=== PATIENT | male | born 1950 | race Asian ===

== ENCOUNTER 2022-03-03 14:58 | Inpatient (IN) | payer MEDICARE ==
[~2022-03-03] VITALS: Ht 182.9 cm; Wt 88.5 kg
[2022-03-03] MEDS ORDERED: DEXTROSE 50% WATER 50ML SYRINGE IV PRN ×2 (17:45→18:00)
[2022-03-03] MEDS ORDERED: BISACODYL 10MG SUPP PR PRN (17:45)
[2022-03-03 18:12] VITALS: BP 151/72
[2022-03-03 19:00] VITALS: BP 129/66
[2022-03-03] MEDS: BLOOD SUGAR DIAGNOSTIC STRIP TEST SCH (21:00)
[2022-03-03] MEDS: CLONIDINE 0.1MG TABLET PO PRN (21:34)
[2022-03-03] MEDS: AMLODIPINE 5MG TABLET PO SCH (21:35)
[2022-03-03] MEDS: INSULIN LISPRO 100 UNITS/ML SUBCUT SCH (21:36)
[2022-03-03] MEDS: VANCOMYCIN 1GM PMX (XELLIA) 200 ML IV SCH (23:58)
[2022-03-04 00:09] VITALS: BP 160/77
[2022-03-04 04:39] VITALS: BP 162/82
[2022-03-04] MEDS: BLOOD SUGAR DIAGNOSTIC STRIP TEST SCH ×4 (05:49→21:11)
[2022-03-04] MEDS: ACETAMINOPHEN 325MG TABLET PO PRN (05:49)
[2022-03-04] MEDS: INSULIN LISPRO 100 UNITS/ML SUBCUT SCH ×4 (05:52→21:57)
[2022-03-04 06:38] LABS: BASOPHILS % 1.2 % (0.0-2.0); EOSINOPHILS % 7.6 % (0.0-5.0); HEMOGLOBIN. 8.6 g/dL (14.0-18.0); LYMPHOCYTES % 22.6 % (20.0-50.0); MEAN CORPUSCULAR HEMOGLOBIN 29.8 pg (28.0-32.0); MEAN CORPUSCULAR VOLUME 86.6 fL (80.0-94.0); MEAN PLATELET VOLUME 5.9 fl (7.4-10.4); MONOCYTES % 7.7 % (2.0-8.0); NEUTROPHILS % 60.9 % (40.0-76.0); PLATELET 321 x1000/uL (130-400); RED BLOOD CELL COUNT 2.88 mill/uL (4.7-6.1); RED CELL DISTRIBUTION WIDTH 16.3 % (11.6-14.6)
[2022-03-04 07:47] LABS: CHLORIDE 104 mEq/L (98-107); TOTAL IRON BINDING CAPACITY 183 ug/dL (250-450)
[2022-03-04 07:55] LABS: FERRITIN 304 ng/mL (22-322); PROSTRATE SPECIFIC AG TOTAL 0.09 ng/mL (0.0-4.0)
[2022-03-04 08:00] VITALS: BP 151/71
[2022-03-04 08:27] LABS: VITAMIN B12 SERUM 795 pg/mL (211-911)
[2022-03-04] MEDS ORDERED: GABAPENTIN 100MG CAPSULE PO SCH (09:00)
[2022-03-04] MEDS: AMLODIPINE 5MG TABLET PO SCH ×2 (09:02→21:52)
[2022-03-04] MEDS: DOCUSATE SODIUM 100MG CAPSULE PO SCH ×2 (09:02→17:24)
[2022-03-04] MEDS: ENOXAPARIN 40MG/0.4ML SYR SUBCUT SCH (09:03)
[2022-03-04] MEDS: POLYETHYLENE GLYCOL 3350 (17GM) 1 DOSE PACK PO SCH (09:03)
[2022-03-04] MEDS ORDERED: POTASSIUM CHLORIDE 20MEQ TABLET SR PO NR (09:30)
[2022-03-04] MEDS: ASCORBIC ACID 500 MG TABLET PO SCH (10:58)
[2022-03-04] MEDS: VANCOMYCIN 1GM PMX (XELLIA) 200 ML IV SCH (12:43)
[2022-03-04] MEDS: FERROUS SULFATE 325MG TABLET PO SCH ×2 (14:01→17:24)
[2022-03-04] MEDS: GABAPENTIN 300MG CAPSULE PO SCH ×2 (14:02→21:51)
[2022-03-04] MEDS: NYSTATIN POWDER 15GM TOP SCH (18:55)
[2022-03-04 20:00] VITALS: BP 162/76
[2022-03-04 20:30] VITALS: BP 155/78
[2022-03-04] MEDS ORDERED: PREGABALIN 25MG CAPSULE PO SCH (21:00)
[2022-03-04] MEDS: CLONIDINE 0.1MG TABLET PO PRN (22:58)
[2022-03-05] VITALS: BP 134/70
[2022-03-05] MEDS: VANCOMYCIN 1GM PMX (XELLIA) 200 ML IV SCH (00:41)
[2022-03-05] MEDS: INSULIN LISPRO 100 UNITS/ML SUBCUT SCH ×4 (06:39→21:39)
[2022-03-05] MEDS: BLOOD SUGAR DIAGNOSTIC STRIP TEST SCH ×4 (06:39→21:31)
[2022-03-05] MEDS: GABAPENTIN 300MG CAPSULE PO SCH ×3 (06:41→21:35)
[2022-03-05 07:35] LABS: CHLORIDE 103 mEq/L (98-107)
[2022-03-05 08:00] VITALS: BP 162/89
[2022-03-05] MEDS: DOCUSATE SODIUM 100MG CAPSULE PO SCH ×2 (09:11→17:41)
[2022-03-05] MEDS: FERROUS SULFATE 325MG TABLET PO SCH ×3 (09:12→17:40)
[2022-03-05] MEDS: ASCORBIC ACID 500 MG TABLET PO SCH (09:12)
[2022-03-05] MEDS: ENOXAPARIN 40MG/0.4ML SYR SUBCUT SCH (09:12)
[2022-03-05] MEDS: NYSTATIN POWDER 15GM TOP SCH ×3 (09:13→17:00)
[2022-03-05] MEDS: POLYETHYLENE GLYCOL 3350 (17GM) 1 DOSE PACK PO SCH (09:13)
[2022-03-05] MEDS: AMLODIPINE 5MG TABLET PO SCH ×2 (09:18→21:35)
[2022-03-05] MEDS: LOSARTAN POTASSIUM 100 MG TABLET PO SCH (12:48)
[2022-03-05] MEDS: CEFEPIME 2,000 MG in DEXT 5% WATER 100 ML IV SCH (15:46)
[2022-03-05 20:00] VITALS: BP 158/81
[2022-03-06] MEDS: CEFEPIME 2,000 MG in DEXT 5% WATER 100 ML IV SCH ×2 (03:13→16:45)
[2022-03-06] MEDS: BLOOD SUGAR DIAGNOSTIC STRIP TEST SCH ×4 (06:47→21:00)
[2022-03-06] MEDS: INSULIN LISPRO 100 UNITS/ML SUBCUT SCH ×4 (06:48→22:42)
[2022-03-06] MEDS: GABAPENTIN 300MG CAPSULE PO SCH ×3 (06:48→21:21)
[2022-03-06 08:00] VITALS: BP 125/63
[2022-03-06] MEDS: LOSARTAN POTASSIUM 100 MG TABLET PO SCH (09:49)
[2022-03-06] MEDS: ASCORBIC ACID 500 MG TABLET PO SCH (09:50)
[2022-03-06] MEDS: FERROUS SULFATE 325MG TABLET PO SCH ×3 (09:50→16:45)
[2022-03-06] MEDS: AMLODIPINE 5MG TABLET PO SCH ×2 (09:50→21:22)
[2022-03-06] MEDS: POLYETHYLENE GLYCOL 3350 (17GM) 1 DOSE PACK PO SCH (09:51)
[2022-03-06] MEDS: ENOXAPARIN 40MG/0.4ML SYR SUBCUT SCH (09:51)
[2022-03-06] MEDS: DOCUSATE SODIUM 100MG CAPSULE PO SCH ×2 (10:01→17:00)
[2022-03-06] MEDS: NYSTATIN POWDER 15GM TOP SCH ×3 (10:01→17:18)
[2022-03-06] MEDS: VANCOMYCIN 1GM PMX (XELLIA) 200 ML IV SCH ×2 (10:35→12:00)
[2022-03-06] MEDS: ONDANSETRON 4MG ODT PO PRN (11:02)
[2022-03-06 20:00] VITALS: BP 157/86
[2022-03-06 21:15] LABS: CHLORIDE 104 mEq/L (98-107)
[2022-03-07] MEDS: CEFEPIME 2,000 MG in DEXT 5% WATER 100 ML IV SCH ×2 (03:52→14:38)
[2022-03-07] MEDS: VANCOMYCIN 1GM PMX (XELLIA) 200 ML IV SCH ×2 (06:23→23:11)
[2022-03-07] MEDS: GABAPENTIN 300MG CAPSULE PO SCH ×3 (06:24→21:36)
[2022-03-07] MEDS: BLOOD SUGAR DIAGNOSTIC STRIP TEST SCH ×4 (06:24→21:00)
[2022-03-07] MEDS: INSULIN LISPRO 100 UNITS/ML SUBCUT SCH ×4 (07:39→21:38)
[2022-03-07 08:00] VITALS: BP 153/80
[2022-03-07] MEDS: POLYETHYLENE GLYCOL 3350 (17GM) 1 DOSE PACK PO SCH (08:09)
[2022-03-07] MEDS: LOSARTAN POTASSIUM 100 MG TABLET PO SCH (08:10)
[2022-03-07] MEDS: ASCORBIC ACID 500 MG TABLET PO SCH (08:10)
[2022-03-07] MEDS: FERROUS SULFATE 325MG TABLET PO SCH ×2 (08:12→12:24)
[2022-03-07] MEDS: AMLODIPINE 5MG TABLET PO SCH ×2 (08:12→21:36)
[2022-03-07] MEDS: DOCUSATE SODIUM 100MG CAPSULE PO SCH ×2 (08:12→17:42)
[2022-03-07] MEDS: ENOXAPARIN 40MG/0.4ML SYR SUBCUT SCH (08:13)
[2022-03-07] MEDS: NYSTATIN POWDER 15GM TOP SCH ×3 (08:15→17:42)
[2022-03-07] MEDS: MECLIZINE 25MG TABLET PO PRN (12:25)
[2022-03-07 20:00] VITALS: BP 155/83
[2022-03-08] MEDS: CEFEPIME 2,000 MG in DEXT 5% WATER 100 ML IV SCH ×2 (02:11→14:02)
[2022-03-08] MEDS: GABAPENTIN 300MG CAPSULE PO SCH ×2 (05:44→13:57)
[2022-03-08] MEDS: BLOOD SUGAR DIAGNOSTIC STRIP TEST SCH ×4 (05:44→21:00)
[2022-03-08 07:54] LABS: BASOPHILS % 1.8 % (0.0-2.0); EOSINOPHILS % 9.2 % (0.0-5.0); HEMATOCRIT. 28.1 % (42.0-52.0); HEMOGLOBIN. 9.5 g/dL (14.0-18.0); LYMPHOCYTES % 23.5 % (20.0-50.0); MEAN CORPUSCULAR HEMOGLOBIN 29.6 pg (28.0-32.0); MEAN CORPUSCULAR VOLUME 87.7 fL (80.0-94.0); MEAN PLATELET VOLUME 6.1 fl (7.4-10.4); MONOCYTES % 8.9 % (2.0-8.0); NEUTROPHILS % 56.6 % (40.0-76.0); PLATELET 262 x1000/uL (130-400); RED CELL DISTRIBUTION WIDTH 17.3 % (11.6-14.6)
[2022-03-08] MEDS: INSULIN LISPRO 100 UNITS/ML SUBCUT SCH ×4 (07:57→22:19)
[2022-03-08 08:00] VITALS: BP 151/76
[2022-03-08] MEDS: ASCORBIC ACID 500 MG TABLET PO SCH (09:35)
[2022-03-08] MEDS: AMLODIPINE 5MG TABLET PO SCH ×2 (09:36→22:20)
[2022-03-08] MEDS: ENOXAPARIN 40MG/0.4ML SYR SUBCUT SCH (09:37)
[2022-03-08 09:38] LABS: CHLORIDE 102 mEq/L (98-107)
[2022-03-08] MEDS: NYSTATIN POWDER 15GM TOP SCH ×3 (09:38→17:46)
[2022-03-08] MEDS: POLYETHYLENE GLYCOL 3350 (17GM) 1 DOSE PACK PO SCH (09:38)
[2022-03-08] MEDS: MECLIZINE 25MG TABLET PO PRN (09:38)
[2022-03-08] MEDS: FERROUS SULFATE 325MG TABLET PO SCH (09:46)
[2022-03-08] MEDS: DOCUSATE SODIUM 100MG CAPSULE PO SCH ×2 (12:16→17:45)
[2022-03-08] MEDS ORDERED: POTASSIUM CHLORIDE 20MEQ TABLET SR PO NR (16:00)
[2022-03-08] MEDS: VANCOMYCIN 1GM PMX (XELLIA) 200 ML IV SCH (17:47)
[2022-03-08 20:00] VITALS: BP 140/77
[2022-03-08] MEDS: GABAPENTIN 100MG CAPSULE PO SCH (22:20)
[2022-03-09] MEDS: CEFEPIME 2,000 MG in DEXT 5% WATER 100 ML IV SCH ×2 (03:17→14:49)
[2022-03-09] MEDS: GABAPENTIN 100MG CAPSULE PO SCH ×3 (06:20→21:07)
[2022-03-09] MEDS: BLOOD SUGAR DIAGNOSTIC STRIP TEST SCH ×4 (06:33→21:00)
[2022-03-09 08:00] VITALS: BP 155/81
[2022-03-09] MEDS: NYSTATIN POWDER 15GM TOP SCH ×3 (09:00→17:42)
[2022-03-09] MEDS: POLYETHYLENE GLYCOL 3350 (17GM) 1 DOSE PACK PO SCH (09:00)
[2022-03-09] MEDS: INSULIN LISPRO 100 UNITS/ML SUBCUT SCH ×4 (09:00→21:06)
[2022-03-09] MEDS: ENOXAPARIN 40MG/0.4ML SYR SUBCUT SCH (09:37)
[2022-03-09] MEDS: FERROUS SULFATE 325MG TABLET PO SCH (09:38)
[2022-03-09] MEDS: AMLODIPINE 5MG TABLET PO SCH ×2 (09:38→21:08)
[2022-03-09] MEDS: DOCUSATE SODIUM 100MG CAPSULE PO SCH ×2 (09:38→17:37)
[2022-03-09] MEDS: ASCORBIC ACID 500 MG TABLET PO SCH (09:38)
[2022-03-09 17:06] LABS: 25-HYDROXY VITAMIN D3 11 ng/mL (.)
[2022-03-09 21:50] VITALS: BP 153/80
[2022-03-10] MEDS: CEFEPIME 2,000 MG in DEXT 5% WATER 100 ML IV SCH ×2 (04:03→14:20)
[2022-03-10] MEDS: MECLIZINE 25MG TABLET PO PRN (06:29)
[2022-03-10] MEDS: ONDANSETRON 4MG ODT PO PRN (06:30)
[2022-03-10] MEDS: BLOOD SUGAR DIAGNOSTIC STRIP TEST SCH ×4 (06:30→21:00)
[2022-03-10] MEDS: GABAPENTIN 100MG CAPSULE PO SCH ×3 (06:31→22:05)
[2022-03-10 08:00] VITALS: BP 123/62
[2022-03-10] MEDS: INSULIN LISPRO 100 UNITS/ML SUBCUT SCH ×4 (09:00→22:04)
[2022-03-10] MEDS: NYSTATIN POWDER 15GM TOP SCH ×3 (09:04→17:08)
[2022-03-10] MEDS: ENOXAPARIN 40MG/0.4ML SYR SUBCUT SCH (09:04)
[2022-03-10] MEDS: ASCORBIC ACID 500 MG TABLET PO SCH (09:05)
[2022-03-10] MEDS: DOCUSATE SODIUM 100MG CAPSULE PO SCH ×2 (09:05→18:17)
[2022-03-10] MEDS: FERROUS SULFATE 325MG TABLET PO SCH (09:05)
[2022-03-10] MEDS: AMLODIPINE 5MG TABLET PO SCH ×2 (09:05→21:00)
[2022-03-10] MEDS: POLYETHYLENE GLYCOL 3350 (17GM) 1 DOSE PACK PO SCH (09:10)
[2022-03-10] MEDS: ERGOCALCIFEROL 50000UNITS CAPSULE PO SCH (09:13)
[2022-03-10] MEDS ORDERED: VANCOMYCIN 1GM PMX (XELLIA) 200 ML IV SCH (17:00)
[2022-03-10 21:19] VITALS: BP 119/70
[2022-03-11] MEDS: BLOOD SUGAR DIAGNOSTIC STRIP TEST SCH ×3 (06:05→16:33)
[2022-03-11] MEDS: CEFEPIME 1,000 MG in DEXTROSE 5% WATER 50 ML IV SCH ×2 (06:14→18:06)
[2022-03-11] MEDS: GABAPENTIN 100MG CAPSULE PO SCH ×3 (06:14→21:39)
[2022-03-11 08:00] VITALS: BP 138/68
[2022-03-11 08:02] LABS: BASOPHILS % 1.4 % (0.0-2.0); EOSINOPHILS % 9.4 % (0.0-5.0); HEMATOCRIT. 31.3 % (42.0-52.0); HEMOGLOBIN. 10.3 g/dL (14.0-18.0); LYMPHOCYTES % 24.3 % (20.0-50.0); MEAN CORPUSCULAR VOLUME 88.2 fL (80.0-94.0); MEAN PLATELET VOLUME 6.6 fl (7.4-10.4); MONOCYTES % 9.6 % (2.0-8.0); NEUTROPHILS % 55.3 % (40.0-76.0); PLATELET 126 x1000/uL (130-400); RED BLOOD CELL COUNT 3.55 mill/uL (4.7-6.1); RED CELL DISTRIBUTION WIDTH 17.9 % (11.6-14.6)
[2022-03-11 08:16] LABS: CHLORIDE 100 mEq/L (98-107)
[2022-03-11 08:20] LABS: PHOSPHORUS 4.6 mg/dL (2.5-4.9)
[2022-03-11] MEDS: ENOXAPARIN 40MG/0.4ML SYR SUBCUT SCH (08:56)
[2022-03-11] MEDS: DOCUSATE SODIUM 100MG CAPSULE PO SCH ×2 (08:57→16:37)
[2022-03-11] MEDS: ASCORBIC ACID 500 MG TABLET PO SCH (08:57)
[2022-03-11] MEDS: FERROUS SULFATE 325MG TABLET PO SCH (08:57)
[2022-03-11] MEDS: AMLODIPINE 5MG TABLET PO SCH ×2 (08:58→21:39)
[2022-03-11] MEDS: POLYETHYLENE GLYCOL 3350 (17GM) 1 DOSE PACK PO SCH (08:59)
[2022-03-11] MEDS: NYSTATIN POWDER 15GM TOP SCH ×3 (09:00→16:39)
[2022-03-11] MEDS: VANCOMYCIN 1G PREMIX 200 ML IV SCH (10:05)
[2022-03-11] MEDS: INSULIN LISPRO 100 UNITS/ML SUBCUT SCH ×3 (10:15→17:07)
[2022-03-11 20:00] VITALS: BP 125/75
[2022-03-12] MEDS: INSULIN LISPRO 100 UNITS/ML SUBCUT SCH ×5 (00:17→21:00)
[2022-03-12] MEDS: BLOOD SUGAR DIAGNOSTIC STRIP TEST SCH ×5 (00:18→21:55)
[2022-03-12] MEDS: MECLIZINE 25MG TABLET PO PRN (03:55)
[2022-03-12] MEDS: ONDANSETRON 4MG ODT PO PRN (03:56)
[2022-03-12] MEDS ORDERED: VANCOMYCIN 1G PREMIX 200 ML IV SCH ×2 (05:00→12:00)
[2022-03-12] MEDS: VANCOMYCIN 1G PREMIX 200 ML IV SCH ×2 (05:00→05:08)
[2022-03-12] MEDS: CEFEPIME 1,000 MG in DEXTROSE 5% WATER 50 ML IV SCH ×2 (06:50→18:38)
[2022-03-12] MEDS: GABAPENTIN 100MG CAPSULE PO SCH ×3 (06:50→21:56)
[2022-03-12 07:04] LABS: BASOPHILS % 1.3 % (0.0-2.0); EOSINOPHILS % 8.4 % (0.0-5.0); HEMATOCRIT. 23.7 % (42.0-52.0); HEMOGLOBIN. 8.1 g/dL (14.0-18.0); LYMPHOCYTES % 22.5 % (20.0-50.0); MEAN CORPUSCULAR HEMOGLOBIN 29.9 pg (28.0-32.0); MEAN CORPUSCULAR VOLUME 87.7 fL (80.0-94.0); MEAN PLATELET VOLUME 6.4 fl (7.4-10.4); MONOCYTES % 9.5 % (2.0-8.0); NEUTROPHILS % 58.3 % (40.0-76.0); PLATELET 251 x1000/uL (130-400); RED CELL DISTRIBUTION WIDTH 17.4 % (11.6-14.6)
[2022-03-12 08:00] VITALS: BP 137/80
[2022-03-12] MEDS: ASCORBIC ACID 500 MG TABLET PO SCH (08:46)
[2022-03-12] MEDS: POLYETHYLENE GLYCOL 3350 (17GM) 1 DOSE PACK PO SCH (08:46)
[2022-03-12] MEDS: FERROUS SULFATE 325MG TABLET PO SCH (08:46)
[2022-03-12] MEDS: DOCUSATE SODIUM 100MG CAPSULE PO SCH ×2 (08:46→18:37)
[2022-03-12] MEDS: ENOXAPARIN 40MG/0.4ML SYR SUBCUT SCH (08:47)
[2022-03-12] MEDS: NYSTATIN POWDER 15GM TOP SCH ×3 (08:49→18:38)
[2022-03-12] MEDS: AMLODIPINE 5MG TABLET PO SCH ×3 (08:57→21:57)
[2022-03-12 09:36] LABS: CHLORIDE 97 mEq/L (98-107)
[2022-03-12] MEDS: ACETAMINOPHEN 325MG TABLET PO PRN (19:51)
[2022-03-12 20:00] VITALS: BP 123/70
[2022-03-13] MEDS: CEFEPIME 1,000 MG in DEXTROSE 5% WATER 50 ML IV SCH ×2 (05:31→17:34)
[2022-03-13] MEDS: GABAPENTIN 100MG CAPSULE PO SCH ×3 (05:39→22:10)
[2022-03-13] MEDS: BLOOD SUGAR DIAGNOSTIC STRIP TEST SCH ×4 (05:45→21:00)
[2022-03-13 06:40] LABS: CHLORIDE 99 mEq/L (98-107)
[2022-03-13] MEDS: INSULIN LISPRO 100 UNITS/ML SUBCUT SCH ×4 (07:11→21:00)
[2022-03-13 08:00] VITALS: BP 142/77
[2022-03-13] MEDS: DOCUSATE SODIUM 100MG CAPSULE PO SCH ×2 (08:40→16:50)
[2022-03-13] MEDS: VANCOMYCIN 1.25GM PMX (XELLIA) 250 ML IV SCH (08:40)
[2022-03-13] MEDS: AMLODIPINE 5MG TABLET PO SCH ×2 (08:40→21:00)
[2022-03-13] MEDS: POLYETHYLENE GLYCOL 3350 (17GM) 1 DOSE PACK PO SCH (08:40)
[2022-03-13] MEDS: FERROUS SULFATE 325MG TABLET PO SCH (08:40)
[2022-03-13] MEDS: ASCORBIC ACID 500 MG TABLET PO SCH (08:40)
[2022-03-13] MEDS: ENOXAPARIN 40MG/0.4ML SYR SUBCUT SCH (08:44)
[2022-03-13] MEDS: NYSTATIN POWDER 15GM TOP SCH ×3 (08:45→16:50)
[2022-03-13 12:20] LABS: BASOPHILS % 1.3 % (0.0-2.0); EOSINOPHILS % 9.8 % (0.0-5.0); HEMATOCRIT. 31.1 % (42.0-52.0); LYMPHOCYTES % 23.6 % (20.0-50.0); MEAN CORPUSCULAR HEMOGLOBIN 29.9 pg (28.0-32.0); MEAN CORPUSCULAR VOLUME 87.5 fL (80.0-94.0); MEAN PLATELET VOLUME 6.4 fl (7.4-10.4); MONOCYTES % 9.3 % (2.0-8.0); PLATELET 264 x1000/uL (130-400); RED BLOOD CELL COUNT 3.55 mill/uL (4.7-6.1); RED CELL DISTRIBUTION WIDTH 17.5 % (11.6-14.6)
[2022-03-13 12:22] LABS: HEMOGLOBIN. 10.6 g/dL (14.0-18.0)
[2022-03-13 20:00] VITALS: BP 125/65
[2022-03-14] MEDS: CEFEPIME 1,000 MG in DEXTROSE 5% WATER 50 ML IV SCH ×2 (05:40→18:57)
[2022-03-14] MEDS: GABAPENTIN 100MG CAPSULE PO SCH ×3 (05:40→21:03)
[2022-03-14 08:00] VITALS: BP 150/82
[2022-03-14] MEDS: AMLODIPINE 5MG TABLET PO SCH ×3 (09:00→21:18)
[2022-03-14] MEDS: POLYETHYLENE GLYCOL 3350 (17GM) 1 DOSE PACK PO SCH (09:00)
[2022-03-14] MEDS: DOCUSATE SODIUM 100MG CAPSULE PO SCH ×2 (10:20→18:06)
[2022-03-14] MEDS: ASCORBIC ACID 500 MG TABLET PO SCH (10:20)
[2022-03-14] MEDS: FERROUS SULFATE 325MG TABLET PO SCH (10:20)
[2022-03-14] MEDS: INSULIN LISPRO 100 UNITS/ML SUBCUT SCH ×4 (10:21→21:25)
[2022-03-14] MEDS: BLOOD SUGAR DIAGNOSTIC STRIP TEST SCH ×3 (11:15→21:03)
[2022-03-14] MEDS: NYSTATIN POWDER 15GM TOP SCH ×3 (12:59→18:07)
[2022-03-14] MEDS: ENOXAPARIN 40MG/0.4ML SYR SUBCUT SCH (12:59)
[2022-03-14] MEDS: VANCOMYCIN 1.25GM PMX (XELLIA) 250 ML IV SCH (13:43)
[2022-03-14 20:00] VITALS: BP 142/75
[2022-03-15] MEDS: BLOOD SUGAR DIAGNOSTIC STRIP TEST SCH ×4 (05:46→21:04)
[2022-03-15] MEDS: GABAPENTIN 100MG CAPSULE PO SCH ×3 (05:46→21:04)
[2022-03-15] MEDS: CEFEPIME 1,000 MG in DEXTROSE 5% WATER 50 ML IV SCH ×2 (05:46→17:36)
[2022-03-15] MEDS: INSULIN LISPRO 100 UNITS/ML SUBCUT SCH ×4 (06:15→21:13)
[2022-03-15 08:00] VITALS: BP 146/74
[2022-03-15 08:17] LABS: CHLORIDE 105 mEq/L (98-107)
[2022-03-15] MEDS: FERROUS SULFATE 325MG TABLET PO SCH (08:54)
[2022-03-15] MEDS: ASCORBIC ACID 500 MG TABLET PO SCH (08:54)
[2022-03-15] MEDS: VANCOMYCIN 1.25GM PMX (XELLIA) 250 ML IV SCH ×2 (08:54→11:07)
[2022-03-15] MEDS: AMLODIPINE 5MG TABLET PO SCH ×2 (08:55→21:00)
[2022-03-15] MEDS: ENOXAPARIN 40MG/0.4ML SYR SUBCUT SCH (08:56)
[2022-03-15] MEDS: POLYETHYLENE GLYCOL 3350 (17GM) 1 DOSE PACK PO SCH (09:00)
[2022-03-15] MEDS: DOCUSATE SODIUM 100MG CAPSULE PO SCH ×2 (09:00→17:30)
[2022-03-15] MEDS: NYSTATIN POWDER 15GM TOP SCH ×3 (11:07→17:30)
[2022-03-15] MEDS ORDERED: VANCOMYCIN 1.25GM PMX (XELLIA) 250 ML IV SCH (12:00)
[2022-03-15 20:00] VITALS: BP 131/82
[2022-03-16] MEDS: GABAPENTIN 100MG CAPSULE PO SCH ×3 (05:36→21:51)
[2022-03-16] MEDS: CEFEPIME 1,000 MG in DEXTROSE 5% WATER 50 ML IV SCH ×2 (05:36→18:46)
[2022-03-16] MEDS: BLOOD SUGAR DIAGNOSTIC STRIP TEST SCH ×4 (05:36→21:57)
[2022-03-16] MEDS: INSULIN LISPRO 100 UNITS/ML SUBCUT SCH ×4 (06:38→21:55)
[2022-03-16 08:00] VITALS: BP 139/70
[2022-03-16] MEDS: AMLODIPINE 5MG TABLET PO SCH ×2 (09:00→21:51)
[2022-03-16] MEDS: ASCORBIC ACID 500 MG TABLET PO SCH (09:21)
[2022-03-16] MEDS: FERROUS SULFATE 325MG TABLET PO SCH (09:21)
[2022-03-16] MEDS: POLYETHYLENE GLYCOL 3350 (17GM) 1 DOSE PACK PO SCH (09:21)
[2022-03-16] MEDS: DOCUSATE SODIUM 100MG CAPSULE PO SCH ×2 (09:21→17:00)
[2022-03-16] MEDS: ONDANSETRON 4MG ODT PO PRN (09:21)
[2022-03-16] MEDS: ENOXAPARIN 40MG/0.4ML SYR SUBCUT SCH (09:22)
[2022-03-16] MEDS: NYSTATIN POWDER 15GM TOP SCH ×3 (09:23→18:46)
[2022-03-16] MEDS: MECLIZINE 25MG TABLET PO PRN (09:29)
[2022-03-16] MEDS: VANCOMYCIN 1.25GM PMX (XELLIA) 250 ML IV SCH (13:17)
[2022-03-16] MEDS ORDERED: IPRATROPIUM/ALBUTEROL 0.5-3(2.5)MG/3ML NEB HHN PRN (14:00)
[2022-03-17] MEDS: CEFEPIME 1,000 MG in DEXTROSE 5% WATER 50 ML IV SCH (05:50)
[2022-03-17] MEDS: BLOOD SUGAR DIAGNOSTIC STRIP TEST SCH ×2 (06:06→11:26)
[2022-03-17] MEDS: GABAPENTIN 100MG CAPSULE PO SCH (06:49)
[2022-03-17] MEDS: INSULIN LISPRO 100 UNITS/ML SUBCUT SCH ×2 (06:53→13:05)
[2022-03-17 08:00] VITALS: BP 122/74
[2022-03-17] MEDS: POLYETHYLENE GLYCOL 3350 (17GM) 1 DOSE PACK PO SCH (09:00)
[2022-03-17] MEDS: AMLODIPINE 5MG TABLET PO SCH (09:00)
[2022-03-17] MEDS: DOCUSATE SODIUM 100MG CAPSULE PO SCH (09:00)
[2022-03-17] MEDS: ERGOCALCIFEROL 50000UNITS CAPSULE PO SCH (09:58)
[2022-03-17] MEDS: FERROUS SULFATE 325MG TABLET PO SCH (09:58)
[2022-03-17] MEDS: ENOXAPARIN 40MG/0.4ML SYR SUBCUT SCH (09:58)
[2022-03-17] MEDS: NYSTATIN POWDER 15GM TOP SCH (09:58)
[2022-03-17] MEDS: ASCORBIC ACID 500 MG TABLET PO SCH (09:58)
[2022-03-17] MEDS: VANCOMYCIN 1.25GM PMX (XELLIA) 250 ML IV SCH (12:54)
[2022-03-17 13:59] VITALS: BP 122/74
== END 2022-03-17 14:45 | DRG 299 ==
PROVIDERS: ADMIT Physical Medicine & Rehabilitation Spinal Cord Injury Medicine; ATTEND Internal Medicine Nephrology
DX: E11.52 Type 2 diabetes mellitus with diabetic peripheral angiopathy with gangrene (principal); A41.9 Sepsis, unspecified organism; E43 Unspecified severe protein-calorie malnutrition; J98.11 Atelectasis; L03.116 Cellulitis of left lower limb; T87.44 Infection of amputation stump, left lower extremity; M86.8X6 Other osteomyelitis, lower leg; N17.9 Acute kidney failure, unspecified; G54.6 Phantom limb syndrome with pain; E11.69 Type 2 diabetes mellitus with other specified complication; K59.00 Constipation, unspecified; R26.9 Unspecified abnormalities of gait and mobility; R53.81 Other malaise; E11.42 Type 2 diabetes mellitus with diabetic polyneuropathy; D50.9 Iron deficiency anemia, unspecified; I10 Essential (primary) hypertension; E87.6 Hypokalemia; E78.00 Pure hypercholesterolemia, unspecified; Y83.5 Amputation of limb(s) as the cause of abnormal reaction of the patient, or of later complication, without mention of misadventure at the time of the procedure; F06.34 Mood disorder due to known physiological condition with mixed features; B35.1 Tinea unguium; D63.8 Anemia in other chronic diseases classified elsewhere; D69.6 Thrombocytopenia, unspecified; M60.862 Other myositis, left lower leg; E55.9 Vitamin D deficiency, unspecified; Z20.822 Contact with and (suspected) exposure to COVID-19; F39 Unspecified mood [affective] disorder; Z53.20 Procedure and treatment not carried out because of patient's decision for unspecified reasons; M20.42 Other hammer toe(s) (acquired), left foot; M20.41 Other hammer toe(s) (acquired), right foot; Y92.89 Other specified places as the place of occurrence of the external cause; Z79.899 Other long term (current) drug therapy; Z91.041 Radiographic dye allergy status; Z79.4 Long term (current) use of insulin; Z68.26 Body mass index [BMI] 26.0-26.9, adult
CPT/HCPCS: 36415; 73718; 80048; 80053; 80202; 82306; 82607; 82728; 82746; 82962; 83036; 83540; 83550; 83735; 84100; 84134; 84153; 84443; 85025; 85651; 87426; 92523; 93970; 97110; 97112; 97162; 97166; 97530; 97535; 97542; A6261; J0692; J1650; J1815; J3370; J7060; J8597; Q0162; U0003; U0005; G0103